=== PATIENT | male | born 1965 | race Caucasian/White ===

== ENCOUNTER 2024-09-21 06:10 | Emergency (ER) | payer SELFPAY ==
[~2024-09-21] VITALS: Ht 177.8 cm; Wt 83.0 kg
[~2024-09-21 06:10] MED LIST: ANAPROX DS550 MG OR; BENZTROPINE1 MG PO; CEPHALEXIN500 MG PO; LITHIUM CARB300 MG PO; LORTAB 5/3255 MG PO; NO HOME MEDS; PERCOCET 5/325M1 TAB OR; REMERON7.5 MG PO; RISPERDAL2 MG PO; TRILEPTAL150 M1 PO; ULTRAM50 M1 PO; VICODIN ES1 TAB OR
[2024-09-21] MEDS ORDERED: BENZONATATE 200 MG/CAP PO ONE (07:20)
[2024-09-21] MEDS ORDERED: IBUPROFEN 800 MG/TAB PO ONE (07:20)
[2024-09-21] MEDS ORDERED: BENZONATATE200 MG PO (07:51)
[2024-09-21] MEDS ORDERED: NASACORT A55 MCG/ACT IN (07:51)
[2024-09-21] MEDS ORDERED: CLARITIN-D1 TAB PO (07:51)
== END 2024-09-21 08:32 | disposition home or self-care (01) | DRG 153 ==
LOC: ED 06:10
DX: J06.9 Acute upper respiratory infection, unspecified (principal); F17.220 Nicotine dependence, chewing tobacco, uncomplicated; Z20.822 Contact with and (suspected) exposure to COVID-19
CPT/HCPCS: J1100